=== PATIENT | female | born 1960 | race Caucasian/White ===

== ENCOUNTER → 2017-02-19 | Outpatient (CLI) | payer OTHER ==
[2017-02-19 11:19] LABS: BILIRUBIN,URINE NEGATIVE (NEG); COLOR,URINE YELLOW; GLUCOSE, URINE (UA) NEGATIVE (NEG); NITRATE,URINE NEGATIVE (NEG); OCCULT BLOOD,URINE LARGE (NEG); PH,URINE 5.5 (5.0-8.5); PROTEIN,URINE 30 mg/dl (NEG); UROBILINOGEN,URINE 0.2 mg/dL (0.2)
[2017-02-19 11:24] LABS: CLARITY,URINE CLOUDY (CLEAR); URINE SAMPLE TYPE CLEAN CATCH URINE
[2017-02-19 11:25] LABS: BACTERIA,URINE FEW; SQUAMOUS EPITHELIAL CELL,UR FEW; WBC,URINE 40-60
== END ==
LOC: LAB 10:19
PROVIDERS: ATTEND Physician Assistant
DX: R30.0 Dysuria (principal); R82.99 Other abnormal findings in urine
CPT/HCPCS: 81001; 87077; 87088; 87186